=== PATIENT | male | born 1985 | race Hispanic/Latino ===

== ENCOUNTER 2019-07-15 00:34 | Emergency (ER) | payer SELFPAY ==
--- NOTE | 2019-07-15 07:57 | RAD ---
RADIOGRAPH CHEST 2 VIEWS: DATE: 07/15/2019 HISTORY: 33-year-old male with cough FINDINGS: The lungs are clear. The cardiomediastinal silhouette and hilar shadows appear normal. There is no pl eural effusion or pneumothorax. No osseous abnormality is identified. IMPRESSION: Normal
== END 2019-07-15 04:26 | disposition home or self-care (01) ==
LOC: ERS 00:34
DX: J06.9 Acute upper respiratory infection, unspecified (principal); R07.89 Other chest pain
CPT/HCPCS: 71046; 93005

== ENCOUNTER 2019-11-26 14:02 | Emergency (ER) | payer OTHER, SELFPAY ==
[2019-11-27 14:38] LABS: SARS-CoV-2 MS2 Positive; SARS-CoV-2 N Gene Positive; SARS-CoV-2 S Gene Positive; SARS-CoV-2 orf1ab Positive
== END 2019-11-26 14:52 | disposition home or self-care (01) ==
LOC: ERS 14:02
DX: U07.1 COVID-19 (principal)
CPT/HCPCS: 87635; 99283; U0003